=== PATIENT | female | born 1970 | race Caucasian/White ===

== ENCOUNTER 2017-10-16 15:25 | Emergency (ER) | payer SELFPAY ==
[2017-10-16 15:46] LABS: #Basophils 0.1 thou/uL (0.0-0.2); #Eosinphils 0.4 thou/uL (0.0-0.7); #Monocytes 1.2 thou/uL (0.11-0.59); %Basophils 0.6 % (0.0-1.0); %Eosinophils 4.1 % (0.0-10.0); %Lymphocytes 37.8 % (21.0-51.0); %Monocytes 10.8 % (0.0-10.0); %Neutrophils 46.6 % (42.0-75.0); Hemoglobin 13.2 g/dL (12.0-16.0); Mean Corpuscular HGB CONC 33.6 g/dL (32.0-36.0); Mean Corpuscular Hemoglobin 28.4 pg (27.0-31.0); Mean Corpuscular Volume 84.5 fL (78.0-98.0); Mean Platelet Volume 6.6 fL (7.4-10.4); Platelet Count 427 thou/uL (130-400); RBC Distribution Width 13.7 % (11.5-14.5); Red Blood Cell (RBC) Count 4.65 mill/uL (4.20-5.40); White Blood Cell (WBC) Count 10.7 thou/uL (4.8-10.8)
[2017-10-16 15:55] LABS: INR-International Normal Ratio 0.9; PTT 26.8 SEC (22.9-36.1); Prothrombin Time 12.4 SEC (12.0-14.7)
[2017-10-16 16:06] LABS: ALT (SGPT) 16 U/L (8-55); AST (SGOT) 13 U/L (5-34); Albumin 3.5 g/dL (3.5-5.0); Alkaline Phosphatase 147 U/L (40-150); Anion Gap 25 mmol/L (10-20); BUN (Urea Nitrogen) 17 mg/dL (7.0-18.7); Bilirubin, Total 0.4 mg/dL (0.2-1.2); Calc. Creatinine Clearance 0 mL/min (70-130); Calcium 9.7 mg/dL (7.8-10.44); Carbon Dioxide 26 mmol/L (22-29); Chloride 86 mmol/L (98-107); Estimated GFR-MDRD 40; Globulin 3.9 g/dL (2.4-3.5); Glucose 355 mg/dL (70-105); Magnesium 1.5 mg/dL (1.6-2.6); Potassium 4.2 mmol/L (3.5-5.1); Protein, Total 7.4 g/dL (6.0-8.3); Sodium 133 mmol/L (136-145)
[2017-10-16 16:08] LABS: CKMB 1.6 ng/mL (0-6.6); Troponin I 0.025 ng/mL (< 0.028)
--- NOTE | 2017-10-16 16:19 | RAD ---
CHEST ONE VIEW: History: Dyspnea. Comparison: 03-31-16 FINDINGS: Cardiac silhouette is partially obscured by right pleural fluid and basilar infiltrate. Mediastinum i s midline allowing for slight rightward rotation of the patient. Post-operative changes of mediastinu m. Old right clavicular fracture. No evidence of pneumothorax. IMPRESSION: Right pleural fluid and basilar infiltrate. Cause is not evident. POS: [facility]
[2017-10-16] MEDS ORDERED: Magnesium Sulfate 2 GM/NS 0.9% 50 ML BAG ONE (17:40)
[2017-10-16] MEDS ORDERED: Furosemide 20 MG/2 ML VIAL ONE (18:24)
[2017-10-16] MEDS ORDERED: Aspirin 325 MG TAB ONE (18:24)
== END 2017-10-16 19:21 | disposition short-term general hospital (02) ==
LOC: MADERS 15:25
DX: E87.70 Fluid overload, unspecified (principal); E83.42 Hypomagnesemia; I10 Essential (primary) hypertension; E11.9 Type 2 diabetes mellitus without complications; E78.5 Hyperlipidemia, unspecified; F17.210 Nicotine dependence, cigarettes, uncomplicated; F41.9 Anxiety disorder, unspecified; F32.9 Major depressive disorder, single episode, unspecified
CPT/HCPCS: 36416; 71045; 80053; 82553; 83735; 83880; 84484; 85025; 85610; 85730; 93005; 94760; 96365; 96375; J1940; J3475

== ENCOUNTER 2017-11-17 23:42 | Emergency (ER) | payer SELFPAY ==
[2017-11-18] MEDS ORDERED: Bupivacaine PF 0.5% 30 ML VIAL ONE (00:23)
[2017-11-18] MEDS ORDERED: Bupivacaine HCl 0.5%/Epinephrine 1:200,000/PF 30 ml Vial ONE (00:24)
[2017-11-18] MEDS ORDERED: Clindamycin 150 MG CAP ONE (00:52)
== END 2017-11-18 00:58 | disposition home or self-care (01) ==
LOC: MADERS 23:42
DX: K02.9 Dental caries, unspecified (principal); E11.9 Type 2 diabetes mellitus without complications; E78.5 Hyperlipidemia, unspecified; F41.9 Anxiety disorder, unspecified; F32.9 Major depressive disorder, single episode, unspecified; F17.210 Nicotine dependence, cigarettes, uncomplicated
CPT/HCPCS: 64400; J0670; S0020

== ENCOUNTER 2018-09-17 18:55 | Emergency (ER) | payer SELFPAY ==
[2018-09-17] MEDS ORDERED: Aspirin Chewable 81 MG TAB ONE (19:15)
[2018-09-17] MEDS ORDERED: Nitroglycerin 2% Ointment 1 INCH/1 GM Packet ONE (19:15)
[2018-09-17] MEDS ORDERED: Nitroglycerin 0.4 MG TAB 1 EACH ONE (19:15)
[2018-09-17 19:32] LABS: #Basophils 0.1 thou/uL (0.0-0.2); #Eosinphils 0.5 thou/uL (0.0-0.7); #Lymphocytes 2.8 thou/uL (1.20-3.40); #Monocytes 0.8 thou/uL (0.11-0.59); #Neutrophils 5.3 thou/uL (1.40-6.50); %Eosinophils 5.3 % (0.0-10.0); %Lymphocytes 29.3 % (21.0-51.0); %Monocytes 8.3 % (0.0-10.0); %Neutrophils 56.2 % (42.0-75.0); Mean Corpuscular HGB CONC 33.8 g/dL (32.0-36.0); Mean Corpuscular Hemoglobin 28.9 pg (27.0-31.0); Mean Corpuscular Volume 85.4 fL (78.0-98.0); Mean Platelet Volume 7.5 fL (7.4-10.4); Platelet Count 255 thou/uL (130-400); RBC Distribution Width 11.5 % (11.5-14.5); White Blood Cell (WBC) Count 9.5 thou/uL (4.8-10.8)
--- NOTE | 2018-09-17 19:38 | RAD ---
EXAM: Single view of the chest HISTORY: Dyspnea COMPARISON: 02/05/2018 FINDINGS: Single view of the chest shows a normal sized cardiomediastinal silhouette. The patient is status post CABG. There is no evidence of consolidation, mass, or pleural effusion. The bones are unremarkable. IMPRESSION: No evidence of acute cardiopulmonary disease
[2018-09-17 19:53] LABS: ALT (SGPT) 34 U/L (8-55); AST (SGOT) 25 U/L (5-34); Albumin 3.8 g/dL (3.5-5.0); Alkaline Phosphatase 81 U/L (40-150); Anion Gap 20 mmol/L (10-20); BUN (Urea Nitrogen) 26 mg/dL (7.0-18.7); Bilirubin, Total 0.2 mg/dL (0.2-1.2); Calc. Creatinine Clearance 0 mL/min (70-130); Calcium 9.5 mg/dL (7.8-10.44); Carbon Dioxide 25 mmol/L (22-29); Chloride 100 mmol/L (98-107); Estimated GFR-MDRD 41; Globulin 3.6 g/dL (2.4-3.5); Glucose 233 mg/dL (70-105); Potassium 5.1 mmol/L (3.5-5.1); Protein, Total 7.4 g/dL (6.0-8.3); Sodium 140 mmol/L (136-145)
[2018-09-17] MEDS ORDERED: HYDROmorphone 0.5 MG/0.5 ML SYRINGE ONE (20:37)
== END 2018-09-17 20:50 | disposition short-term general hospital (02) ==
LOC: MADERS 18:55
DX: R07.9 Chest pain, unspecified (principal); I25.10 Atherosclerotic heart disease of native coronary artery without angina pectoris; E78.2 Mixed hyperlipidemia; I10 Essential (primary) hypertension; F41.9 Anxiety disorder, unspecified; F32.9 Major depressive disorder, single episode, unspecified; Z79.899 Other long term (current) drug therapy
CPT/HCPCS: 71045; 80053; 83880; 84484; 85025; 93005; 96374; J1170

== ENCOUNTER 2018-12-04 09:55 | Emergency (ER) | payer SELFPAY ==
[2018-12-04] MEDS ORDERED: methylPREDNISolone Sod Succ/PF 125 MG/2 ML VIAL ONE (11:37)
[2018-12-04 11:49] LABS: Bilirubin Negative (Negative); Blood, Urine Small (Negative); Clarity Cloudy (Clear); Glucose, Urine (Dipstick) Negative (Negative); Leukocyte Negative (Negative); Nitrite Negative (Negative); Protein, Urine (Dipstick) > or equal to 300 mg/dL (Neg-Trace); Urobilinogen 0.2 mg/dL (Less than 2)
[2018-12-04 11:57] LABS: Bacteria/HPF 4+ HPF (None Seen); Squamous Epithelial None Seen HPF (0-3)
[2018-12-04] MEDS ORDERED: Nitrofurantoin Monohyd/M-Cryst 100 MG CAP ONE (12:08)
== END 2018-12-04 12:15 | disposition home or self-care (01) ==
LOC: MADERS 09:55
DX: N39.0 Urinary tract infection, site not specified (principal); M54.42 Lumbago with sciatica, left side; F41.9 Anxiety disorder, unspecified; F32.9 Major depressive disorder, single episode, unspecified; I25.10 Atherosclerotic heart disease of native coronary artery without angina pectoris; I10 Essential (primary) hypertension; E11.40 Type 2 diabetes mellitus with diabetic neuropathy, unspecified; E78.5 Hyperlipidemia, unspecified; E87.1 Hypo-osmolality and hyponatremia; Z79.82 Long term (current) use of aspirin; Z79.899 Other long term (current) drug therapy; Z79.84 Long term (current) use of oral hypoglycemic drugs
CPT/HCPCS: 81003; 81015; 87077; 87086; 87186; 96372; 99283; J2930

== ENCOUNTER 2019-10-04 09:44 | Outpatient (CLI) | payer OTHER ==
--- NOTE | 2019-10-04 10:18 | RAD ---
LEFT SHOULDER 3 VIEWS: HISTORY: Fall with injury. FINDINGS: Humeral head is normally positioned. AC joint normally aligned. No fracture. No dislocation. IMPRESSION: Unremarkable left shoulder. POS: [facility]
--- NOTE | 2019-10-04 10:19 | RAD ---
CERVICAL SPINE 3 VIEWS: HISTORY: Fall with injury. FINDINGS: Cervical vertebrae maintain normal height and alignment. The disk spaces are normally maintained. P osterior elements are normally aligned. Minimal degenerative change. IMPRESSION: Unremarkable cervical spine. POS: [facility]
--- NOTE | 2019-10-04 10:56 | RAD ---
LEFT KNEE 3 VIEWS: HISTORY: Fall. FINDINGS: The joint spaces are normally maintained. There is no evidence of fracture. No evidence of joint ef fusion. No significant degenerative change. IMPRESSION: Unremarkable left knee. POS: [facility]
== END 2019-10-04 09:45 | disposition home or self-care (01) ==
LOC: MADRAD 09:44
PROVIDERS: ATTEND Nurse Practitioner Family
DX: M25.562 Pain in left knee (principal); M25.512 Pain in left shoulder; M54.2 Cervicalgia; Z91.81 History of falling
CPT/HCPCS: 72040

== ENCOUNTER 2019-11-17 14:58 | Outpatient (CLI) | payer OTHER ==
--- NOTE | 2019-11-17 15:50 | RAD ---
LEFT FOOT 3 VIEWS: HISTORY: Injury, left foot pain. FINDINGS/IMPRESSION: No acute fracture or dislocation is identified. POS: [facility]
== END 2019-11-17 14:59 | disposition home or self-care (01) ==
LOC: MADRAD 14:58
PROVIDERS: ATTEND Nurse Practitioner Family
DX: S99.922A Unspecified injury of left foot, initial encounter (principal)

== ENCOUNTER 2019-12-03 19:21 | Emergency (ER) | payer OTHER ==
[2019-12-03] MEDS ORDERED: Cefepime 2 GM VIAL ONE (20:20)
[2019-12-03] MEDS ORDERED: Sodium Chloride 0.9% 1,000 ML ONE (20:20)
[2019-12-03] MEDS ORDERED: Sodium Chloride 0.9% 100 ML ONE (20:21)
--- NOTE | 2019-12-03 20:29 | RAD ---
EXAM: 3 views of the left foot HISTORY: Foot pain after being attacked by a cat COMPARISON: 11/17/2019 FINDINGS: 3 views of the left foot shows no evidence of acute fracture or dislocation. Mild soft tiss ue swelling is seen. No osseous erosions are seen. Vascular calcifications are present. No degenerative changes are present. IMPRESSION: No evidence of acute osseous abnormality.
--- NOTE | 2019-12-03 20:30 | RAD ---
EXAM: 3 views of the left ankle HISTORY: Ankle pain and swelling COMPARISON: None FINDINGS: 3 views of the left ankle shows no evidence of acute fracture or dislocation. Mild diffuse soft tissue swelling is seen. No degenerative changes are present. A chronic ossific fragment is seen adjacent to the medial malleolus. IMPRESSION: No evidence of acute osseous abnormality.
[2019-12-03 20:52] LABS: #Basophils 0.2 thou/uL (0.0-0.2); #Eosinphils 0.4 thou/uL (0.0-0.7); #Lymphocytes 3.1 thou/uL (1.20-3.40); #Monocytes 0.8 thou/uL (0.11-0.59); #Neutrophils 9.4 thou/uL (1.40-6.50); %Basophils 1.1 % (0.0-1.0); %Eosinophils 3.2 % (0.0-10.0); %Lymphocytes 22.5 % (21.0-51.0); %Monocytes 5.6 % (0.0-10.0); %Neutrophils 67.6 % (42.0-75.0); Hemoglobin 14.3 g/dL (12.0-16.0); Mean Corpuscular HGB CONC 33.1 g/dL (32.0-36.0); Mean Corpuscular Hemoglobin 29.9 pg (27.0-31.0); Mean Corpuscular Volume 90.2 fL (78.0-98.0); Mean Platelet Volume 7.3 fL (7.4-10.4); Platelet Count 451 thou/uL (130-400); RBC Distribution Width 11.5 % (11.5-14.5); Red Blood Cell (RBC) Count 4.79 mill/uL (4.20-5.40); White Blood Cell (WBC) Count 13.9 thou/uL (4.8-10.8)
[2019-12-03] MEDS ORDERED: Vancomycin 1.5 GRAM/300 ML BAG ONE (20:58)
[2019-12-03 21:01] LABS: Bilirubin Negative (Negative); Blood, Urine Moderate (Negative); Glucose, Urine (Dipstick) 500 mg/dL (Negative); Ketone, Urine Negative (Negative); Leukocyte Trace (Negative); Nitrite Positive (Negative); Protein, Urine (Dipstick) > or equal to 300 mg/dL (Neg-Trace); Urobilinogen 0.2 mg/dL (Less than 2); pH, Urine 6.5 (5.0-9.0)
[2019-12-03 21:03] LABS: INR-International Normal Ratio 0.8; PTT 25.2 sec (22.9-36.1); Prothrombin Time 11.1 sec (12.0-14.7)
[2019-12-03 21:06] LABS: Clarity Hazy (Clear)
[2019-12-03 21:07] LABS: Bacteria/HPF 2+ HPF (None Seen)
[2019-12-03 21:08] LABS: ALT (SGPT) 11 U/L (8-55); AST (SGOT) 11 U/L (5-34); Alkaline Phosphatase 91 U/L (40-110); Anion Gap 17 mmol/L (10-20); BUN (Urea Nitrogen) 19 mg/dL (9.8-20.1); Bilirubin, Total Less than 0.2 mg/dL (0.2-1.2); Calc. Creatinine Clearance 0 mL/min (70-130); Calcium 8.4 mg/dL (7.8-10.44); Carbon Dioxide 22 mmol/L (22-29); Chloride 98 mmol/L (98-107); Estimated GFR-MDRD 40; Glucose 255 mg/dL (70-105); Potassium 4.9 mmol/L (3.5-5.1); Sodium 132 mmol/L (136-145)
[2019-12-03] MEDS ORDERED: Morphine 4 MG/ML VIAL ONE (21:12)
[2019-12-03] MEDS ORDERED: Acetaminophen 500 MG TAB ONE (21:12)
== END 2019-12-03 22:56 | disposition left against medical advice (07) ==
LOC: MADERS 19:21
DX: L03.116 Cellulitis of left lower limb (principal); N30.00 Acute cystitis without hematuria; E11.40 Type 2 diabetes mellitus with diabetic neuropathy, unspecified; I25.2 Old myocardial infarction; I10 Essential (primary) hypertension; I25.10 Atherosclerotic heart disease of native coronary artery without angina pectoris; E78.5 Hyperlipidemia, unspecified; E78.00 Pure hypercholesterolemia, unspecified; E78.1 Pure hyperglyceridemia; F41.9 Anxiety disorder, unspecified; F32.9 Major depressive disorder, single episode, unspecified; Z79.84 Long term (current) use of oral hypoglycemic drugs; Z79.82 Long term (current) use of aspirin; Z79.899 Other long term (current) drug therapy
CPT/HCPCS: 80053; 81003; 81015; 83605; 85025; 85610; 85730; 87040; 87077; 87086; 96365; 96367; 96375; J0692; J2270; J3370; J3490; J7050

== ENCOUNTER 2020-06-28 21:40 | Inpatient (IN) | payer OTHER ==
[2020-06-28] MEDS ORDERED: traMADol HCl 50 MG TAB PO PRN (22:38)
[2020-06-28] MEDS ORDERED: Brimonidine Tartrate 0.2% Ophth Soln 5 ml Bottle R EYE SCH (23:00)
[2020-06-28] MEDS ORDERED: Gabapentin 100 MG CAP PO SCH (23:00)
[2020-06-28] MEDS ORDERED: Timolol 0.5% Ophth Soln 5 ml Bottle R EYE SCH (23:00)
[2020-06-28] MEDS ORDERED: Mirtazapine 15 MG TAB PO SCH (23:00)
[2020-06-28] MEDS ORDERED: Atorvastatin Calcium 40 MG TAB PO SCH (23:00)
[2020-06-29] MEDS: Acetaminophen 325 MG TAB PO SCH ×3 (05:30→17:55)
[2020-06-29] MEDS ORDERED: Alogliptin 25 MG TAB PO SCH (09:00)
[2020-06-29] MEDS: metFORMIN 500 MG TAB PO SCH ×2 (09:08→17:28)
[2020-06-29] MEDS: Metoprolol Tartrate 25 MG TAB PO SCH (09:08)
[2020-06-29] MEDS: Amlodipine 5 MG TAB PO SCH (09:08)
[2020-06-29] MEDS: Citalopram 20 MG TAB PO SCH (09:08)
[2020-06-29] MEDS: Potassium Chloride 20 MEQ TAB PO SCH (09:08)
[2020-06-29] MEDS: Gabapentin 100 MG CAP PO SCH ×2 (09:09→16:03)
[2020-06-29] MEDS: Furosemide 20 MG TAB PO SCH ×2 (09:09→13:19)
[2020-06-29] MEDS: Brimonidine Tartrate 0.2% Ophth Soln 5 ml Bottle R EYE SCH ×2 (09:10→21:41)
[2020-06-29] MEDS: Clopidogrel Bisulfate 75 MG TAB PO SCH (09:10)
[2020-06-29] MEDS: Timolol 0.5% Ophth Soln 5 ml Bottle R EYE SCH ×2 (09:11→21:41)
[2020-06-29 17:19] LABS: Bilirubin Negative (Negative); Blood, Urine Small (Negative); Clarity Slightly Cloudy (Clear); Glucose, Urine (Dipstick) Negative (Negative); Ketone, Urine Negative (Negative); Leukocyte Small (Negative); Nitrite Negative (Negative); Protein, Urine (Dipstick) 100 mg/dL (Neg-Trace); Specific Gravity, Urine 1.015 (1.005-1.030); Urobilinogen 0.2 mg/dL (Less than 2)
[2020-06-29 17:21] LABS: RBC/HPF 0-3 HPF (0-3)
[2020-06-29 17:22] LABS: Bacteria/HPF 4+ HPF (None Seen); Squamous Epithelial None Seen HPF (0-3); Urine Culture Reflex Yes Yes
[2020-06-29 17:25] LABS: Anion Gap 12 mmol/L (10-20); BUN (Urea Nitrogen) 21 mg/dL (9.8-20.1); Calc. Creatinine Clearance 54 mL/min (70-130); Calcium 8.2 mg/dL (7.8-10.44); Carbon Dioxide 21 mmol/L (22-29); Chloride 110 mmol/L (98-107); Glucose 70 mg/dL (70-105); Potassium 3.8 mmol/L (3.5-5.1); Sodium 139 mmol/L (136-145)
[2020-06-29 17:27] LABS: #Basophils 0.1 thou/uL (0.0-0.2); #Eosinphils 0.1 thou/uL (0.0-0.7); #Lymphocytes 1.2 thou/uL (1.20-3.40); #Monocytes 0.9 thou/uL (0.11-0.59); #Neutrophils 5.6 thou/uL (1.40-6.50); %Basophils 0.7 % (0.0-1.0); %Eosinophils 0.9 % (0.0-10.0); %Lymphocytes 15.1 % (21.0-51.0); %Neutrophils 71.3 % (42.0-75.0); Anisocytosis SLIGHT = 6-15 cells (100X) (0-5/hpf); Hemoglobin 11.1 g/dL (12.0-16.0); Hypochromia SLIGHT = 6-15 cells (100X) (0-5/hpf); MDiff Complete? YES; Mean Corpuscular HGB CONC 30.6 g/dL (32.0-36.0); Mean Corpuscular Hemoglobin 22.1 pg (27.0-31.0); Mean Corpuscular Volume 72.2 fL (78.0-98.0); Mean Platelet Volume 6.6 fL (7.4-10.4); Microcytosis SLIGHT = 6-15 cells (100X) (0-5/hpf); Ovalocytes SLIGHT = 2-5 cells (100X) (0-1/hpf); Platelet Count 336 thou/uL (130-400); Platelet Morphology Comment Appears Adequate; RBC Distribution Width 18.8 % (11.5-14.5); Red Blood Cell (RBC) Count 5.03 mill/uL (4.20-5.40); White Blood Cell (WBC) Count 7.9 thou/uL (4.8-10.8)
[2020-06-29] MEDS: Transdermal Patch Removal TOP SCH (20:14)
[2020-06-29] MEDS ORDERED: Mirtazapine 15 MG TAB PO SCH (21:00)
[2020-06-29] MEDS: Atorvastatin Calcium 40 MG TAB PO SCH (21:41)
[2020-06-30] MEDS: Acetaminophen 325 MG TAB PO SCH ×4 (00:02→17:02)
[2020-06-30 06:04] LABS: #Basophils 0.1 thou/uL (0.0-0.2); #Eosinphils 0.1 thou/uL (0.0-0.7); #Lymphocytes 1.9 thou/uL (1.20-3.40); #Monocytes 1.1 thou/uL (0.11-0.59); #Neutrophils 5.1 thou/uL (1.40-6.50); %Basophils 0.9 % (0.0-1.0); %Eosinophils 1.4 % (0.0-10.0); %Lymphocytes 23.2 % (21.0-51.0); %Monocytes 13.7 % (0.0-10.0); %Neutrophils 60.9 % (42.0-75.0); Hemoglobin 11.4 g/dL (12.0-16.0); Mean Corpuscular HGB CONC 28.8 g/dL (32.0-36.0); Mean Corpuscular Hemoglobin 20.9 pg (27.0-31.0); Mean Corpuscular Volume 72.8 fL (78.0-98.0); Mean Platelet Volume 6.5 fL (7.4-10.4); Platelet Count 377 thou/uL (130-400); RBC Distribution Width 19.1 % (11.5-14.5); Red Blood Cell (RBC) Count 5.44 mill/uL (4.20-5.40); White Blood Cell (WBC) Count 8.3 thou/uL (4.8-10.8)
[2020-06-30 06:06] LABS: Anisocytosis SLIGHT = 6-15 cells (100X) (0-5/hpf); Platelet Morphology Comment Appears Adequate
[2020-06-30 06:07] LABS: Anion Gap 13 mmol/L (10-20); BUN (Urea Nitrogen) 26 mg/dL (9.8-20.1); Calc. Creatinine Clearance 55 mL/min (70-130); Calcium 8.3 mg/dL (7.8-10.44); Carbon Dioxide 21 mmol/L (22-29); Chloride 107 mmol/L (98-107); Glucose 104 mg/dL (70-105); Potassium 4.1 mmol/L (3.5-5.1); Sodium 137 mmol/L (136-145)
[2020-06-30] MEDS: Citalopram 20 MG TAB PO SCH (08:34)
[2020-06-30] MEDS: Enoxaparin Sodium 40 MG/0.4 ML SYRINGE SC SCH (08:34)
[2020-06-30] MEDS: Lidocaine 5% Patch TD SCH (08:34)
[2020-06-30] MEDS: Amlodipine 5 MG TAB PO SCH (08:35)
[2020-06-30] MEDS: Clopidogrel Bisulfate 75 MG TAB PO SCH (08:35)
[2020-06-30] MEDS: Metoprolol Tartrate 25 MG TAB PO SCH (08:36)
[2020-06-30] MEDS: Potassium Chloride 20 MEQ TAB PO SCH (08:36)
[2020-06-30] MEDS: Furosemide 20 MG TAB PO SCH ×2 (08:36→14:27)
[2020-06-30] MEDS: metFORMIN 500 MG TAB PO SCH ×2 (08:36→17:02)
[2020-06-30] MEDS: Brimonidine Tartrate 0.2% Ophth Soln 5 ml Bottle R EYE SCH ×2 (08:39→20:58)
[2020-06-30] MEDS: Timolol 0.5% Ophth Soln 5 ml Bottle R EYE SCH ×2 (08:40→20:58)
[2020-06-30] MEDS: Naproxen 500 MG TAB PO PRN (14:29)
[2020-06-30] MEDS: Mirtazapine 15 MG TAB PO SCH (20:55)
[2020-06-30] MEDS: Gabapentin 100 MG CAP PO SCH (20:56)
[2020-06-30] MEDS: Atorvastatin Calcium 40 MG TAB PO SCH (20:57)
[2020-06-30] MEDS: Transdermal Patch Removal TOP SCH (21:17)
[2020-07-01] MEDS: Acetaminophen 325 MG TAB PO SCH ×5 (01:24→23:37)
[2020-07-01] MEDS: Naproxen 500 MG TAB PO PRN ×2 (01:26→08:22)
[2020-07-01] MEDS: Potassium Chloride 20 MEQ TAB PO SCH (08:20)
[2020-07-01] MEDS: metFORMIN 500 MG TAB PO SCH ×2 (08:21→17:07)
[2020-07-01] MEDS: Citalopram 20 MG TAB PO SCH (08:21)
[2020-07-01] MEDS: Amlodipine 5 MG TAB PO SCH (08:22)
[2020-07-01] MEDS: Furosemide 20 MG TAB PO SCH ×2 (08:22→14:50)
[2020-07-01] MEDS: Gabapentin 100 MG CAP PO SCH ×3 (08:23→21:07)
[2020-07-01] MEDS: Enoxaparin Sodium 40 MG/0.4 ML SYRINGE SC SCH (08:24)
[2020-07-01] MEDS: Clopidogrel Bisulfate 75 MG TAB PO SCH (08:24)
[2020-07-01] MEDS: Lidocaine 5% Patch TD SCH (08:25)
[2020-07-01] MEDS: Timolol 0.5% Ophth Soln 5 ml Bottle R EYE SCH ×2 (08:25→21:09)
[2020-07-01] MEDS: Metoprolol Tartrate 25 MG TAB PO SCH (08:25)
[2020-07-01] MEDS: Brimonidine Tartrate 0.2% Ophth Soln 5 ml Bottle R EYE SCH ×2 (08:25→21:10)
[2020-07-01] MEDS: Atorvastatin Calcium 40 MG TAB PO SCH (21:07)
[2020-07-01] MEDS: Nitrofurantoin Monohyd/M-Cryst 100 MG CAP PO SCH (21:07)
[2020-07-01] MEDS: Mirtazapine 15 MG TAB PO SCH (21:07)
[2020-07-01] MEDS: Transdermal Patch Removal TOP SCH (21:11)
[2020-07-02] MEDS: Acetaminophen 325 MG TAB PO SCH ×2 (05:31→12:05)
[2020-07-02] MEDS: Nitrofurantoin Monohyd/M-Cryst 100 MG CAP PO SCH ×2 (09:29→21:52)
[2020-07-02] MEDS: Citalopram 20 MG TAB PO SCH (09:29)
[2020-07-02] MEDS: Gabapentin 100 MG CAP PO SCH ×3 (09:30→21:54)
[2020-07-02] MEDS: metFORMIN 500 MG TAB PO SCH ×2 (09:30→17:28)
[2020-07-02] MEDS: Metoprolol Tartrate 25 MG TAB PO SCH (09:30)
[2020-07-02] MEDS: Potassium Chloride 20 MEQ TAB PO SCH (09:30)
[2020-07-02] MEDS: Furosemide 20 MG TAB PO SCH ×2 (09:31→13:49)
[2020-07-02] MEDS: Brimonidine Tartrate 0.2% Ophth Soln 5 ml Bottle R EYE SCH ×2 (09:31→21:55)
[2020-07-02] MEDS: Amlodipine 5 MG TAB PO SCH (09:31)
[2020-07-02] MEDS: Clopidogrel Bisulfate 75 MG TAB PO SCH (09:31)
[2020-07-02] MEDS: Enoxaparin Sodium 40 MG/0.4 ML SYRINGE SC SCH (09:32)
[2020-07-02] MEDS: Lidocaine 5% Patch TD SCH (09:33)
[2020-07-02] MEDS: Timolol 0.5% Ophth Soln 5 ml Bottle R EYE SCH ×2 (09:43→21:55)
[2020-07-02] MEDS: Naproxen 500 MG TAB PO PRN (13:47)
[2020-07-02] MEDS: Atorvastatin Calcium 40 MG TAB PO SCH (21:52)
[2020-07-02] MEDS: Mirtazapine 15 MG TAB PO SCH (21:53)
[2020-07-02] MEDS: Transdermal Patch Removal TOP SCH (21:56)
[2020-07-03] MEDS: Enoxaparin Sodium 40 MG/0.4 ML SYRINGE SC SCH (08:17)
[2020-07-03] MEDS: Clopidogrel Bisulfate 75 MG TAB PO SCH (08:18)
[2020-07-03] MEDS: Gabapentin 100 MG CAP PO SCH ×3 (08:18→20:40)
[2020-07-03] MEDS: Amlodipine 5 MG TAB PO SCH (08:18)
[2020-07-03] MEDS: Furosemide 20 MG TAB PO SCH ×2 (08:19→14:47)
[2020-07-03] MEDS: Metoprolol Tartrate 25 MG TAB PO SCH (08:19)
[2020-07-03] MEDS: Citalopram 20 MG TAB PO SCH (08:19)
[2020-07-03] MEDS: metFORMIN 500 MG TAB PO SCH ×2 (08:19→17:32)
[2020-07-03] MEDS: Potassium Chloride 20 MEQ TAB PO SCH (08:19)
[2020-07-03] MEDS: Nitrofurantoin Monohyd/M-Cryst 100 MG CAP PO SCH ×2 (08:19→20:44)
[2020-07-03] MEDS: Brimonidine Tartrate 0.2% Ophth Soln 5 ml Bottle R EYE SCH ×2 (08:20→20:39)
[2020-07-03] MEDS: Timolol 0.5% Ophth Soln 5 ml Bottle R EYE SCH ×2 (08:21→20:40)
[2020-07-03] MEDS: Lidocaine 5% Patch TD SCH (08:21)
[2020-07-03] MEDS: Acetaminophen 325 MG TAB PO PRN ×3 (08:22→20:43)
[2020-07-03] MEDS: Atorvastatin Calcium 40 MG TAB PO SCH (20:40)
[2020-07-03] MEDS: Mirtazapine 15 MG TAB PO SCH (20:41)
[2020-07-03] MEDS: Transdermal Patch Removal TOP SCH (20:44)
[2020-07-04] MEDS: Naproxen 500 MG TAB PO PRN ×2 (08:25→14:12)
[2020-07-04] MEDS: Brimonidine Tartrate 0.2% Ophth Soln 5 ml Bottle R EYE SCH ×2 (08:26→22:23)
[2020-07-04] MEDS: Timolol 0.5% Ophth Soln 5 ml Bottle R EYE SCH ×2 (08:26→22:21)
[2020-07-04] MEDS: Enoxaparin Sodium 40 MG/0.4 ML SYRINGE SC SCH (08:26)
[2020-07-04] MEDS: Potassium Chloride 20 MEQ TAB PO SCH (08:27)
[2020-07-04] MEDS: Nitrofurantoin Monohyd/M-Cryst 100 MG CAP PO SCH ×2 (08:27→22:19)
[2020-07-04] MEDS: metFORMIN 500 MG TAB PO SCH ×2 (08:27→17:52)
[2020-07-04] MEDS: Metoprolol Tartrate 25 MG TAB PO SCH (08:27)
[2020-07-04] MEDS: Furosemide 20 MG TAB PO SCH ×2 (08:27→14:13)
[2020-07-04] MEDS: Clopidogrel Bisulfate 75 MG TAB PO SCH (08:27)
[2020-07-04] MEDS: Gabapentin 100 MG CAP PO SCH ×3 (08:28→22:19)
[2020-07-04] MEDS: Amlodipine 5 MG TAB PO SCH (08:28)
[2020-07-04] MEDS: Citalopram 20 MG TAB PO SCH (08:28)
[2020-07-04] MEDS: Lidocaine 5% Patch TD SCH (08:32)
[2020-07-04] MEDS: Atorvastatin Calcium 40 MG TAB PO SCH (22:17)
[2020-07-04] MEDS: Mirtazapine 15 MG TAB PO SCH (22:18)
[2020-07-04] MEDS: Transdermal Patch Removal TOP SCH (22:26)
[2020-07-05] MEDS: Gabapentin 100 MG CAP PO SCH ×3 (08:53→21:50)
[2020-07-05] MEDS: Metoprolol Tartrate 25 MG TAB PO SCH (08:53)
[2020-07-05] MEDS: Nitrofurantoin Monohyd/M-Cryst 100 MG CAP PO SCH ×2 (08:53→21:49)
[2020-07-05] MEDS: metFORMIN 500 MG TAB PO SCH ×2 (08:55→16:58)
[2020-07-05] MEDS: Furosemide 20 MG TAB PO SCH ×2 (08:55→13:28)
[2020-07-05] MEDS: Clopidogrel Bisulfate 75 MG TAB PO SCH (08:55)
[2020-07-05] MEDS: Amlodipine 5 MG TAB PO SCH (08:55)
[2020-07-05] MEDS: Citalopram 20 MG TAB PO SCH (08:55)
[2020-07-05] MEDS: Potassium Chloride 20 MEQ TAB PO SCH (08:55)
[2020-07-05] MEDS: Naproxen 500 MG TAB PO PRN ×2 (08:56→17:00)
[2020-07-05] MEDS: Brimonidine Tartrate 0.2% Ophth Soln 5 ml Bottle R EYE SCH ×2 (08:59→21:55)
[2020-07-05] MEDS: Lidocaine 5% Patch TD SCH (09:00)
[2020-07-05] MEDS: Enoxaparin Sodium 40 MG/0.4 ML SYRINGE SC SCH (09:00)
[2020-07-05] MEDS: Timolol 0.5% Ophth Soln 5 ml Bottle R EYE SCH ×2 (09:04→21:54)
[2020-07-05] MEDS: Acetaminophen 325 MG TAB PO PRN ×2 (13:27→21:50)
[2020-07-05] MEDS: Mirtazapine 15 MG TAB PO SCH (21:49)
[2020-07-05] MEDS: Atorvastatin Calcium 40 MG TAB PO SCH (21:49)
[2020-07-05] MEDS: Transdermal Patch Removal TOP SCH (21:55)
[2020-07-06] MEDS: metFORMIN 500 MG TAB PO SCH ×2 (09:01→17:37)
[2020-07-06] MEDS: Clopidogrel Bisulfate 75 MG TAB PO SCH (09:02)
[2020-07-06] MEDS: Gabapentin 100 MG CAP PO SCH ×3 (09:02→20:13)
[2020-07-06] MEDS: Citalopram 20 MG TAB PO SCH (09:02)
[2020-07-06] MEDS: Nitrofurantoin Monohyd/M-Cryst 100 MG CAP PO SCH ×2 (09:02→20:10)
[2020-07-06] MEDS: Furosemide 20 MG TAB PO SCH ×2 (09:04→15:02)
[2020-07-06] MEDS: Potassium Chloride 20 MEQ TAB PO SCH (09:04)
[2020-07-06] MEDS: Enoxaparin Sodium 40 MG/0.4 ML SYRINGE SC SCH (09:04)
[2020-07-06] MEDS: Metoprolol Tartrate 25 MG TAB PO SCH (09:04)
[2020-07-06] MEDS: Lidocaine 5% Patch TD SCH (09:04)
[2020-07-06] MEDS: Timolol 0.5% Ophth Soln 5 ml Bottle R EYE SCH ×2 (09:05→20:10)
[2020-07-06] MEDS: Amlodipine 5 MG TAB PO SCH (09:06)
[2020-07-06] MEDS: Brimonidine Tartrate 0.2% Ophth Soln 5 ml Bottle R EYE SCH ×2 (09:06→20:10)
[2020-07-06] MEDS: Naproxen 500 MG TAB PO PRN (13:22)
[2020-07-06] MEDS: Atorvastatin Calcium 40 MG TAB PO SCH (20:12)
[2020-07-06] MEDS: Transdermal Patch Removal TOP SCH (20:14)
[2020-07-06] MEDS: Mirtazapine 15 MG TAB PO SCH (20:14)
[2020-07-06] MEDS: Acetaminophen 325 MG TAB PO PRN (20:17)
[2020-07-07] MEDS: Gabapentin 100 MG CAP PO SCH ×3 (08:39→21:10)
[2020-07-07] MEDS: Enoxaparin Sodium 40 MG/0.4 ML SYRINGE SC SCH (08:39)
[2020-07-07] MEDS: metFORMIN 500 MG TAB PO SCH ×2 (08:41→17:50)
[2020-07-07] MEDS: Metoprolol Tartrate 25 MG TAB PO SCH (08:41)
[2020-07-07] MEDS: Clopidogrel Bisulfate 75 MG TAB PO SCH (08:41)
[2020-07-07] MEDS: Potassium Chloride 20 MEQ TAB PO SCH (08:41)
[2020-07-07] MEDS: Citalopram 20 MG TAB PO SCH (08:42)
[2020-07-07] MEDS: Furosemide 20 MG TAB PO SCH ×2 (08:42→13:53)
[2020-07-07] MEDS: Amlodipine 5 MG TAB PO SCH (08:43)
[2020-07-07] MEDS: Timolol 0.5% Ophth Soln 5 ml Bottle R EYE SCH ×2 (08:44→21:09)
[2020-07-07] MEDS: Brimonidine Tartrate 0.2% Ophth Soln 5 ml Bottle R EYE SCH ×2 (08:44→21:09)
[2020-07-07] MEDS: Lidocaine 5% Patch TD SCH (08:45)
[2020-07-07] MEDS: Acetaminophen 325 MG TAB PO PRN (18:29)
[2020-07-07] MEDS: Naproxen 500 MG TAB PO PRN (18:29)
[2020-07-07] MEDS: Atorvastatin Calcium 40 MG TAB PO SCH (21:08)
[2020-07-07] MEDS: Mirtazapine 15 MG TAB PO SCH (21:09)
[2020-07-07] MEDS: Transdermal Patch Removal TOP SCH (21:13)
[2020-07-08] MEDS: Naproxen 500 MG TAB PO PRN ×2 (07:17→13:13)
[2020-07-08] MEDS: Gabapentin 100 MG CAP PO SCH ×4 (07:18→21:43)
[2020-07-08] MEDS: Enoxaparin Sodium 40 MG/0.4 ML SYRINGE SC SCH (07:18)
[2020-07-08] MEDS: Amlodipine 5 MG TAB PO SCH (07:19)
[2020-07-08] MEDS: Metoprolol Tartrate 25 MG TAB PO SCH (07:20)
[2020-07-08] MEDS: metFORMIN 500 MG TAB PO SCH ×2 (07:20→16:03)
[2020-07-08] MEDS: Timolol 0.5% Ophth Soln 5 ml Bottle R EYE SCH ×2 (07:20→21:46)
[2020-07-08] MEDS: Citalopram 20 MG TAB PO SCH (07:20)
[2020-07-08] MEDS: Potassium Chloride 20 MEQ TAB PO SCH (07:20)
[2020-07-08] MEDS: Lidocaine 5% Patch TD SCH (07:20)
[2020-07-08] MEDS: Clopidogrel Bisulfate 75 MG TAB PO SCH (07:20)
[2020-07-08] MEDS: Brimonidine Tartrate 0.2% Ophth Soln 5 ml Bottle R EYE SCH ×2 (07:21→21:46)
[2020-07-08] MEDS: Furosemide 20 MG TAB PO SCH ×2 (10:42→13:13)
[2020-07-08] MEDS: Atorvastatin Calcium 40 MG TAB PO SCH (21:42)
[2020-07-08] MEDS: Mirtazapine 15 MG TAB PO SCH (21:42)
[2020-07-08] MEDS: Transdermal Patch Removal TOP SCH (21:48)
[2020-07-09] MEDS: Citalopram 20 MG TAB PO SCH (08:26)
[2020-07-09] MEDS: Clopidogrel Bisulfate 75 MG TAB PO SCH (08:27)
[2020-07-09] MEDS: Furosemide 20 MG TAB PO SCH ×2 (08:27→14:13)
[2020-07-09] MEDS: Gabapentin 100 MG CAP PO SCH ×3 (08:27→20:52)
[2020-07-09] MEDS: Metoprolol Tartrate 25 MG TAB PO SCH (08:27)
[2020-07-09] MEDS: metFORMIN 500 MG TAB PO SCH ×2 (08:28→17:06)
[2020-07-09] MEDS: Enoxaparin Sodium 40 MG/0.4 ML SYRINGE SC SCH (08:28)
[2020-07-09] MEDS: Lidocaine 5% Patch TD SCH (08:28)
[2020-07-09] MEDS: Potassium Chloride 20 MEQ TAB PO SCH (08:28)
[2020-07-09] MEDS: Amlodipine 5 MG TAB PO SCH (08:28)
[2020-07-09] MEDS: Brimonidine Tartrate 0.2% Ophth Soln 5 ml Bottle R EYE SCH ×2 (08:33→20:54)
[2020-07-09] MEDS: Timolol 0.5% Ophth Soln 5 ml Bottle R EYE SCH ×2 (08:33→20:55)
[2020-07-09] MEDS: Acetaminophen 325 MG TAB PO PRN (12:57)
[2020-07-09] MEDS: Naproxen 500 MG TAB PO PRN (14:12)
[2020-07-09] MEDS: Transdermal Patch Removal TOP SCH (20:45)
[2020-07-09] MEDS: Atorvastatin Calcium 40 MG TAB PO SCH (20:50)
[2020-07-09] MEDS: Mirtazapine 15 MG TAB PO SCH (20:51)
[2020-07-10] MEDS: Naproxen 500 MG TAB PO PRN ×2 (04:04→22:01)
[2020-07-10] MEDS: Lidocaine 5% Patch TD SCH (08:30)
[2020-07-10] MEDS: Gabapentin 100 MG CAP PO SCH ×3 (08:31→20:55)
[2020-07-10] MEDS: Potassium Chloride 20 MEQ TAB PO SCH (08:32)
[2020-07-10] MEDS: Furosemide 20 MG TAB PO SCH ×2 (08:32→14:18)
[2020-07-10] MEDS: metFORMIN 500 MG TAB PO SCH ×2 (08:32→17:22)
[2020-07-10] MEDS: Metoprolol Tartrate 25 MG TAB PO SCH (08:32)
[2020-07-10] MEDS: Clopidogrel Bisulfate 75 MG TAB PO SCH (08:32)
[2020-07-10] MEDS: Amlodipine 5 MG TAB PO SCH (08:32)
[2020-07-10] MEDS: Citalopram 20 MG TAB PO SCH (08:33)
[2020-07-10] MEDS: Brimonidine Tartrate 0.2% Ophth Soln 5 ml Bottle R EYE SCH ×2 (08:35→20:54)
[2020-07-10] MEDS: Timolol 0.5% Ophth Soln 5 ml Bottle R EYE SCH ×2 (08:36→20:52)
[2020-07-10] MEDS: Enoxaparin Sodium 40 MG/0.4 ML SYRINGE SC SCH (08:36)
[2020-07-10] MEDS: ACETAZOLAMIDE 250 MG TAB PO SCH (20:50)
[2020-07-10] MEDS: Latanoprost 0.005% Ophth Soln 2.5 ml Bottle R EYE SCH (20:54)
[2020-07-10] MEDS: Atorvastatin Calcium 40 MG TAB PO SCH (20:55)
[2020-07-10] MEDS: Mirtazapine 15 MG TAB PO SCH (20:55)
[2020-07-10] MEDS: Transdermal Patch Removal TOP SCH (20:56)
[2020-07-11] MEDS: Enoxaparin Sodium 40 MG/0.4 ML SYRINGE SC SCH (09:17)
[2020-07-11] MEDS: Lidocaine 5% Patch TD SCH (09:17)
[2020-07-11] MEDS: Timolol 0.5% Ophth Soln 5 ml Bottle R EYE SCH ×2 (09:17→20:29)
[2020-07-11] MEDS: Metoprolol Tartrate 25 MG TAB PO SCH (09:18)
[2020-07-11] MEDS: Potassium Chloride 20 MEQ TAB PO SCH (09:18)
[2020-07-11] MEDS: Furosemide 20 MG TAB PO SCH ×2 (09:18→13:55)
[2020-07-11] MEDS: Clopidogrel Bisulfate 75 MG TAB PO SCH (09:18)
[2020-07-11] MEDS: Gabapentin 100 MG CAP PO SCH ×3 (09:18→20:31)
[2020-07-11] MEDS: Amlodipine 5 MG TAB PO SCH (09:18)
[2020-07-11] MEDS: Citalopram 20 MG TAB PO SCH (09:18)
[2020-07-11] MEDS: ACETAZOLAMIDE 250 MG TAB PO SCH ×3 (09:19→20:38)
[2020-07-11] MEDS: Brimonidine Tartrate 0.2% Ophth Soln 5 ml Bottle R EYE SCH ×2 (09:23→20:30)
[2020-07-11] MEDS: metFORMIN 500 MG TAB PO SCH ×2 (09:23→17:09)
[2020-07-11] MEDS: Naproxen 500 MG TAB PO PRN (13:55)
[2020-07-11] MEDS: Atorvastatin Calcium 40 MG TAB PO SCH (20:29)
[2020-07-11] MEDS: Mirtazapine 15 MG TAB PO SCH (20:31)
[2020-07-11] MEDS: Latanoprost 0.005% Ophth Soln 2.5 ml Bottle R EYE SCH (20:32)
[2020-07-11] MEDS: Transdermal Patch Removal TOP SCH (20:33)
[2020-07-11] MEDS: Acetaminophen 325 MG TAB PO PRN (20:41)
[2020-07-12] MEDS: Lidocaine 5% Patch TD SCH (08:23)
[2020-07-12] MEDS: Metoprolol Tartrate 25 MG TAB PO SCH (08:25)
[2020-07-12] MEDS: metFORMIN 500 MG TAB PO SCH ×2 (08:25→17:00)
[2020-07-12] MEDS: Amlodipine 5 MG TAB PO SCH (08:25)
[2020-07-12] MEDS: Gabapentin 100 MG CAP PO SCH ×3 (08:26→20:45)
[2020-07-12] MEDS: Potassium Chloride 20 MEQ TAB PO SCH (08:26)
[2020-07-12] MEDS: Citalopram 20 MG TAB PO SCH (08:27)
[2020-07-12] MEDS: Clopidogrel Bisulfate 75 MG TAB PO SCH (08:27)
[2020-07-12] MEDS: Furosemide 20 MG TAB PO SCH ×2 (08:27→14:56)
[2020-07-12] MEDS: Acetaminophen 325 MG TAB PO PRN (08:27)
[2020-07-12] MEDS: Brimonidine Tartrate 0.2% Ophth Soln 5 ml Bottle R EYE SCH ×2 (08:28→20:44)
[2020-07-12] MEDS: Enoxaparin Sodium 40 MG/0.4 ML SYRINGE SC SCH (08:28)
[2020-07-12] MEDS: Timolol 0.5% Ophth Soln 5 ml Bottle R EYE SCH ×2 (08:29→20:44)
[2020-07-12] MEDS: ACETAZOLAMIDE 250 MG TAB PO SCH (08:37)
[2020-07-12] MEDS: AcetaZOLAMIDE 250 MG TAB PO SCH ×2 (14:56→20:46)
[2020-07-12 15:38] VITALS: BMI 23.6
[2020-07-12 18:05] LABS: Anion Gap 18 mmol/L (10-20); BUN (Urea Nitrogen) 56 mg/dL (9.8-20.1); Calc. Creatinine Clearance 47 mL/min (70-130); Carbon Dioxide 22 mmol/L (22-29); Chloride 105 mmol/L (98-107); Potassium 4.8 mmol/L (3.5-5.1); Sodium 140 mmol/L (136-145)
[2020-07-12 18:06] LABS: ALT (SGPT) 13 U/L (8-55); AST (SGOT) 16 U/L (5-34); Albumin 3.2 g/dL (3.5-5.0); Alkaline Phosphatase 140 U/L (40-110); Bilirubin, Total 0.4 mg/dL (0.2-1.2); Calcium 8.7 mg/dL (7.8-10.44); Globulin 3.9 g/dL (2.4-3.5); Glucose 117 mg/dL (70-105); Protein, Total 7.1 g/dL (6.0-8.3)
[2020-07-12] MEDS: Latanoprost 0.005% Ophth Soln 2.5 ml Bottle R EYE SCH (20:45)
[2020-07-12] MEDS: Cefdinir 300 MG CAP PO SCH (20:45)
[2020-07-12] MEDS: Atorvastatin Calcium 40 MG TAB PO SCH (20:46)
[2020-07-12] MEDS: Mirtazapine 15 MG TAB PO SCH (20:48)
[2020-07-12] MEDS: Transdermal Patch Removal TOP SCH (21:00)
[2020-07-13] MEDS: Amlodipine 5 MG TAB PO SCH (09:17)
[2020-07-13] MEDS: Cefdinir 300 MG CAP PO SCH (09:18)
[2020-07-13] MEDS: AcetaZOLAMIDE 250 MG TAB PO SCH ×3 (09:18→20:28)
[2020-07-13] MEDS: metFORMIN 500 MG TAB PO SCH ×2 (09:18→18:08)
[2020-07-13] MEDS: Furosemide 20 MG TAB PO SCH (09:18)
[2020-07-13] MEDS: Potassium Chloride 20 MEQ TAB PO SCH (09:18)
[2020-07-13] MEDS: Naproxen 500 MG TAB PO PRN (09:19)
[2020-07-13] MEDS: Clopidogrel Bisulfate 75 MG TAB PO SCH (09:19)
[2020-07-13] MEDS: Gabapentin 100 MG CAP PO SCH ×3 (09:21→20:27)
[2020-07-13] MEDS: Metoprolol Tartrate 25 MG TAB PO SCH (09:22)
[2020-07-13] MEDS: Citalopram 20 MG TAB PO SCH (09:22)
[2020-07-13] MEDS: Enoxaparin Sodium 40 MG/0.4 ML SYRINGE SC SCH (09:22)
[2020-07-13] MEDS: Lidocaine 5% Patch TD SCH (09:23)
[2020-07-13] MEDS: Timolol 0.5% Ophth Soln 5 ml Bottle R EYE SCH ×2 (09:23→20:26)
[2020-07-13] MEDS: Brimonidine Tartrate 0.2% Ophth Soln 5 ml Bottle R EYE SCH ×2 (09:24→20:26)
[2020-07-13] MEDS ORDERED: Furosemide 40 MG/4 ML VIAL ONE (13:44)
[2020-07-13] MEDS ORDERED: Furosemide 40 MG/4 ML VIAL SLOW IVP SCH (13:45)
[2020-07-13 14:07] LABS: CKMB 2.2 ng/mL (0-6.6)
[2020-07-13 16:20] LABS: SARS-CoV-2 PCR by NAA Not Detected (NotDetected)
[2020-07-13 19:30] VITALS: BP 118/77; TEMP 97.3
[2020-07-13] MEDS ORDERED: cefTRIAXone\\ROCEPHIN 2 GM in Sodium Chloride 0.9% 100 ML IVPB SCH (20:00)
[2020-07-13] MEDS: Latanoprost 0.005% Ophth Soln 2.5 ml Bottle R EYE SCH (20:26)
[2020-07-13] MEDS: Mirtazapine 15 MG TAB PO SCH (20:28)
[2020-07-13] MEDS: Atorvastatin Calcium 40 MG TAB PO SCH (20:29)
[2020-07-13] MEDS: Transdermal Patch Removal TOP SCH (20:42)
[2020-07-13] MEDS ORDERED: Doxycycline 100 MG CAP PO SCH (21:00)
== END 2020-07-13 23:50 | disposition short-term general hospital (02) | DRG 291 ==
LOC: MADMS 21:40
PROVIDERS: ADMIT Family Medicine; ATTEND Family Medicine
DX: I11.0 Hypertensive heart disease with heart failure (principal); J18.9 Pneumonia, unspecified organism; J96.21 Acute and chronic respiratory failure with hypoxia; N39.0 Urinary tract infection, site not specified; E11.40 Type 2 diabetes mellitus with diabetic neuropathy, unspecified; I25.10 Atherosclerotic heart disease of native coronary artery without angina pectoris; H40.9 Unspecified glaucoma; E11.51 Type 2 diabetes mellitus with diabetic peripheral angiopathy without gangrene; R53.81 Other malaise; I50.33 Acute on chronic diastolic (congestive) heart failure; R41.0 Disorientation, unspecified; R26.9 Unspecified abnormalities of gait and mobility; B95.2 Enterococcus as the cause of diseases classified elsewhere; T50.905A Adverse effect of unspecified drugs, medicaments and biological substances, initial encounter; R00.1 Bradycardia, unspecified; F41.8 Other specified anxiety disorders; Z20.822 Contact with and (suspected) exposure to COVID-19; S81.802S Unspecified open wound, left lower leg, sequela; S72.002S Fracture of unspecified part of neck of left femur, sequela; Z91.81 History of falling; Z99.81 Dependence on supplemental oxygen
CPT/HCPCS: 36416; 71045; 80048; 80053; 82550; 82553; 83880; 84484; 85025; 87070; 87077; 87086; 87186; 87205; 87635; 94640; 36415-59; J0696; J1650; J1940; J3490; J7620; U0003; U0005

== ENCOUNTER 2020-09-19 11:57 | Emergency (ER) | payer OTHER ==
[2020-09-19 13:27] LABS: ALT (SGPT) 18 U/L (8-55); AST (SGOT) 22 U/L (5-34); Albumin 3.3 g/dL (3.5-5.0); Alkaline Phosphatase 179 U/L (40-110); Anion Gap 19 mmol/L (10-20); BUN (Urea Nitrogen) 15 mg/dL (9.8-20.1); Bilirubin, Total 0.7 mg/dL (0.2-1.2); CK (CPK) 58 U/L (29-168); Calc. Creatinine Clearance 0 mL/min (70-130); Calcium 8.9 mg/dL (7.8-10.44); Carbon Dioxide 24 mmol/L (22-29); Chloride 97 mmol/L (98-107); Globulin 4.2 g/dL (2.4-3.5); Glucose 177 mg/dL (70-105); Lipase 72 U/L (8-78); Potassium 4.1 mmol/L (3.5-5.1); Protein, Total 7.5 g/dL (6.0-8.3); Sodium 136 mmol/L (136-145)
[2020-09-19 13:41] LABS: #Basophils 0.1 thou/uL (0.0-0.2); #Eosinphils 0.2 thou/uL (0.0-0.7); #Lymphocytes 1.1 thou/uL (1.20-3.40); #Monocytes 0.8 thou/uL (0.11-0.59); #Neutrophils 6.3 thou/uL (1.40-6.50); %Basophils 0.6 % (0.0-1.0); %Eosinophils 2.4 % (0.0-10.0); Anisocytosis SLIGHT = 6-15 cells (100X) (0-5/hpf); Hemoglobin 12.1 g/dL (12.0-16.0); Hypochromia SLIGHT = 6-15 cells (100X) (0-5/hpf); MDiff Complete? YES; Mean Corpuscular Hemoglobin 28.2 pg (27.0-31.0); Mean Corpuscular Volume 90.8 fL (78.0-98.0); Mean Platelet Volume 7.6 fL (7.4-10.4); Platelet Count 251 thou/uL (130-400); Platelet Morphology Comment Appears Adequate; RBC Distribution Width 18.6 % (11.5-14.5); Red Blood Cell (RBC) Count 4.31 mill/uL (4.20-5.40); White Blood Cell (WBC) Count 8.4 thou/uL (4.8-10.8)
[2020-09-19] MEDS ORDERED: Furosemide 40 MG/4 ML VIAL ONE (13:44)
[2020-09-19] MEDS ORDERED: Nitroglycerin 2% Ointment 1 INCH/1 GM Packet ONE (13:44)
== END 2020-09-19 15:29 | disposition short-term general hospital (02) ==
LOC: MADERS 11:57
DX: I11.0 Hypertensive heart disease with heart failure (principal); I50.9 Heart failure, unspecified; R06.2 Wheezing; E11.40 Type 2 diabetes mellitus with diabetic neuropathy, unspecified; I25.10 Atherosclerotic heart disease of native coronary artery without angina pectoris; I25.2 Old myocardial infarction; E78.5 Hyperlipidemia, unspecified; E78.00 Pure hypercholesterolemia, unspecified; E78.1 Pure hyperglyceridemia; Z87.891 Personal history of nicotine dependence; Z79.84 Long term (current) use of oral hypoglycemic drugs; Z79.891 Long term (current) use of opiate analgesic; Z79.899 Other long term (current) drug therapy
CPT/HCPCS: 71045; 80053; 82550; 83690; 83880; 84484; 85025; 93005; 94760; 96374; J1940; J7620

== ENCOUNTER 2020-10-04 10:56 | Outpatient (CLI) | payer OTHER ==
[2020-10-04 11:52] LABS: Albumin 3.4 g/dL (3.5-5.0); Anion Gap 17 mmol/L (10-20); BUN (Urea Nitrogen) 19 mg/dL (9.8-20.1); BUN/Creatinine Ratio 13.19; Calc. Creatinine Clearance 0 mL/min (70-130); Calcium 9.2 mg/dL (7.8-10.44); Carbon Dioxide 27 mmol/L (22-29); Chloride 96 mmol/L (98-107); Glucose 237 mg/dL (70-105); Phosphorus 4.3 mg/dL (2.3-4.7); Potassium 4.5 mmol/L (3.5-5.1); Sodium 135 mmol/L (136-145)
== END 2020-10-04 10:57 | disposition home or self-care (01) ==
LOC: MADLAB 10:56
PROVIDERS: ATTEND Internal Medicine Nephrology
DX: N17.9 Acute kidney failure, unspecified (principal)
CPT/HCPCS: 36415; 80069

== ENCOUNTER 2020-10-09 16:24 | Emergency (ER) | payer OTHER ==
[2020-10-09 18:27] LABS: ALT (SGPT) 12 U/L (8-55); AST (SGOT) 16 U/L (5-34); Albumin 2.5 g/dL (3.5-5.0); Alkaline Phosphatase 214 U/L (40-110); Anion Gap 17 mmol/L (10-20); BUN (Urea Nitrogen) 23 mg/dL (9.8-20.1); Bilirubin, Total 0.5 mg/dL (0.2-1.2); Calc. Creatinine Clearance 0 mL/min (70-130); Calcium 8.8 mg/dL (7.8-10.44); Carbon Dioxide 25 mmol/L (22-29); Chloride 91 mmol/L (98-107); Globulin 4.3 g/dL (2.4-3.5); Glucose 283 mg/dL (70-105); Potassium 4.8 mmol/L (3.5-5.1); Protein, Total 6.8 g/dL (6.0-8.3); Sodium 128 mmol/L (136-145)
[2020-10-09 18:31] LABS: Band 9 % (5-11); Hemoglobin 9.4 g/dL (12.0-16.0); Hypochromia SLIGHT = 6-15 cells (100X) (0-5/hpf); Lymphocytes 2 % (21-51); MDiff Complete? YES; Mean Corpuscular HGB CONC 30.7 g/dL (32.0-36.0); Mean Corpuscular Hemoglobin 27.6 pg (27.0-31.0); Mean Corpuscular Volume 89.6 fL (78.0-98.0); Mean Platelet Volume 8.3 fL (7.4-10.4); Monocytes 2 % (0-10); Neutrophil 84 % (42-75); Platelet Count 323 thou/uL (130-400); Platelet Morphology Comment Appears Adequate; RBC Distribution Width 16.7 % (11.5-14.5); Reactive Lymphocytes 3 % (0-10); Red Blood Cell (RBC) Count 3.42 mill/uL (4.20-5.40); White Blood Cell (WBC) Count 26.4 thou/uL (4.8-10.8)
[2020-10-09] MEDS ORDERED: Sodium Chloride 0.9% 250 ML 250 ML ONE ×2 (19:21→19:24)
[2020-10-09] MEDS ORDERED: Morphine 4 MG/ML VIAL ONE (19:21)
[2020-10-09] MEDS ORDERED: cefTRIAXone\\ROCEPHIN 2 GM VIAL ONE (19:21)
== END 2020-10-09 20:56 | disposition short-term general hospital (02) ==
LOC: MADERS 16:24
DX: M86.9 Osteomyelitis, unspecified (principal); L97.529 Non-pressure chronic ulcer of other part of left foot with unspecified severity; L03.116 Cellulitis of left lower limb; E11.40 Type 2 diabetes mellitus with diabetic neuropathy, unspecified; I25.10 Atherosclerotic heart disease of native coronary artery without angina pectoris; I25.2 Old myocardial infarction; I10 Essential (primary) hypertension; E78.5 Hyperlipidemia, unspecified; E78.00 Pure hypercholesterolemia, unspecified; E78.1 Pure hyperglyceridemia; Z87.891 Personal history of nicotine dependence; Z79.891 Long term (current) use of opiate analgesic; Z79.899 Other long term (current) drug therapy; Z79.84 Long term (current) use of oral hypoglycemic drugs
CPT/HCPCS: 80053; 85025; 86140; 96365; 96375; J0696; J2270; J3370; J7050

== ENCOUNTER 2020-10-16 13:38 | Inpatient (IN) | payer OTHER ==
[2020-10-16 16:13] VITALS: BMI 22.3
[2020-10-16] MEDS ORDERED: Ondansetron ODT 4 MG TAB PO PRN (16:16)
[2020-10-16] MEDS ORDERED: Senokot S 8.6-50 MG TAB PO PRN (16:34)
[2020-10-16] MEDS ORDERED: traMADol HCl 50 MG TAB PO PRN (16:34)
[2020-10-16] MEDS ORDERED: Dextrose 50% Abboject 50 ML SYRINGE SLOW IVP PRN (16:37)
[2020-10-16] MEDS: Acetaminophen 325 MG TAB PO PRN (18:23)
[2020-10-16] MEDS: HumaLOG 300 UNITS/3 ML VIAL SC PRN (18:24)
[2020-10-16] MEDS ORDERED: Polyethylene Glycol 3350 17 GM Packet PO PRN (20:14)
[2020-10-16] MEDS: Atorvastatin Calcium 40 MG TAB PO SCH (20:22)
[2020-10-16] MEDS: Brimonidine Tartrate 0.2% Ophth Soln 5 ml Bottle R EYE SCH (20:24)
[2020-10-16] MEDS: Gabapentin 100 MG CAP PO SCH (20:25)
[2020-10-16] MEDS: metroNIDAZOLE 250 MG TAB PO SCH (20:26)
[2020-10-16] MEDS: Docusate 100 MG CAP PO PRN (23:36)
[2020-10-17 05:34] LABS: #Basophils 0.1 thou/uL (0.0-0.2); #Eosinphils 0.2 thou/uL (0.0-0.7); #Lymphocytes 1.7 thou/uL (1.20-3.40); #Monocytes 2.4 thou/uL (0.11-0.59); #Neutrophils 33.3 thou/uL (1.40-6.50); %Basophils 0.3 % (0.0-1.0); %Eosinophils 0.5 % (0.0-10.0); %Lymphocytes 4.5 % (21.0-51.0); %Monocytes 6.4 % (0.0-10.0); %Neutrophils 88.4 % (42.0-75.0); Hemoglobin 11.2 g/dL (12.0-16.0); Mean Corpuscular HGB CONC 32.2 g/dL (32.0-36.0); Mean Corpuscular Hemoglobin 28.1 pg (27.0-31.0); Mean Corpuscular Volume 87.3 fL (78.0-98.0); Mean Platelet Volume 8.2 fL (7.4-10.4); Platelet Count 382 thou/uL (130-400); RBC Distribution Width 15.9 % (11.5-14.5); Red Blood Cell (RBC) Count 3.97 mill/uL (4.20-5.40); White Blood Cell (WBC) Count 37.6 thou/uL (4.8-10.8)
[2020-10-17 05:45] LABS: Anion Gap 15 mmol/L (10-20); BUN (Urea Nitrogen) 25 mg/dL (9.8-20.1); Calc. Creatinine Clearance 49 mL/min (70-130); Calcium 8.7 mg/dL (7.8-10.44); Carbon Dioxide 26 mmol/L (22-29); Chloride 94 mmol/L (98-107); Glucose 195 mg/dL (70-105); Potassium 4.9 mmol/L (3.5-5.1); Sodium 130 mmol/L (136-145)
[2020-10-17] MEDS: Acetaminophen 325 MG TAB PO PRN (09:09)
[2020-10-17] MEDS: Torsemide 20 MG TAB PO SCH (09:11)
[2020-10-17] MEDS: Gabapentin 100 MG CAP PO SCH ×3 (09:11→20:31)
[2020-10-17] MEDS: Saccharomyces boulardii 250 MG CAP PO SCH (09:12)
[2020-10-17] MEDS: metroNIDAZOLE 250 MG TAB PO SCH ×3 (09:12→20:32)
[2020-10-17] MEDS: Brimonidine Tartrate 0.2% Ophth Soln 5 ml Bottle R EYE SCH ×2 (09:12→20:31)
[2020-10-17] MEDS: Clopidogrel Bisulfate 75 MG TAB PO SCH (09:12)
[2020-10-17] MEDS: Docusate 100 MG CAP PO PRN (09:12)
[2020-10-17] MEDS: Enoxaparin Sodium 40 MG/0.4 ML SYRINGE SC SCH (09:12)
[2020-10-17] MEDS: HumaLOG 300 UNITS/3 ML VIAL SC PRN ×3 (09:15→17:36)
[2020-10-17] MEDS: Alogliptin 25 MG TAB PO SCH (09:54)
[2020-10-17] MEDS ORDERED: Alogliptin 6.25 MG TAB PO SCH (10:00)
[2020-10-17] MEDS: traMADol HCl 50 MG TAB PO PRN ×3 (11:45→23:58)
[2020-10-17 15:58] LABS: Bilirubin Negative (Negative); Blood, Urine Trace (Negative); Glucose, Urine (Dipstick) Negative (Negative); Ketone, Urine Negative (Negative); Leukocyte Negative (Negative); Nitrite Negative (Negative); Protein, Urine (Dipstick) 100 mg/dL (Neg-Trace); Urobilinogen 0.2 mg/dL (Less than 2)
[2020-10-17 16:04] LABS: Bacteria/HPF Rare-Few HPF (None Seen); Clarity Hazy (Clear); RBC/HPF 0-3 HPF (0-3); Squamous Epithelial 0-3 HPF (0-3); Urine Culture Reflex No No; WBC/HPF 0-3 HPF (0-3)
[2020-10-17] MEDS: Atorvastatin Calcium 40 MG TAB PO SCH (20:31)
[2020-10-18] MEDS: Acetaminophen 325 MG TAB PO PRN ×2 (05:00→13:49)
[2020-10-18 05:17] LABS: #Basophils 0.1 thou/uL (0.0-0.2); #Eosinphils 0.1 thou/uL (0.0-0.7); #Lymphocytes 1.8 thou/uL (1.20-3.40); #Monocytes 1.8 thou/uL (0.11-0.59); #Neutrophils 30.1 thou/uL (1.40-6.50); %Basophils 0.4 % (0.0-1.0); %Eosinophils 0.3 % (0.0-10.0); %Lymphocytes 5.4 % (21.0-51.0); %Monocytes 5.3 % (0.0-10.0); %Neutrophils 88.7 % (42.0-75.0); Hemoglobin 10.6 g/dL (12.0-16.0); Mean Corpuscular HGB CONC 30.9 g/dL (32.0-36.0); Mean Corpuscular Hemoglobin 27.1 pg (27.0-31.0); Mean Corpuscular Volume 87.9 fL (78.0-98.0); Mean Platelet Volume 7.9 fL (7.4-10.4); Platelet Count 421 thou/uL (130-400); RBC Distribution Width 16.5 % (11.5-14.5); Red Blood Cell (RBC) Count 3.92 mill/uL (4.20-5.40); White Blood Cell (WBC) Count 33.9 thou/uL (4.8-10.8)
[2020-10-18] MEDS: HumaLOG 300 UNITS/3 ML VIAL SC PRN ×3 (08:19→17:19)
[2020-10-18] MEDS: Torsemide 20 MG TAB PO SCH (08:22)
[2020-10-18] MEDS: Clopidogrel Bisulfate 75 MG TAB PO SCH (08:22)
[2020-10-18] MEDS: Gabapentin 100 MG CAP PO SCH ×3 (08:22→19:55)
[2020-10-18] MEDS: Saccharomyces boulardii 250 MG CAP PO SCH (08:22)
[2020-10-18] MEDS: metroNIDAZOLE 250 MG TAB PO SCH ×3 (08:22→20:00)
[2020-10-18] MEDS: Brimonidine Tartrate 0.2% Ophth Soln 5 ml Bottle R EYE SCH ×2 (08:23→20:02)
[2020-10-18] MEDS: Enoxaparin Sodium 40 MG/0.4 ML SYRINGE SC SCH (09:12)
[2020-10-18] MEDS: traMADol HCl 50 MG TAB PO PRN ×2 (09:38→15:42)
[2020-10-18] MEDS: Alogliptin 25 MG TAB PO SCH (09:51)
[2020-10-18 12:04] LABS: Creatinine, Urine 22.83 mg/dL (47-110)
[2020-10-18] MEDS ORDERED: Senokot S 8.6-50 MG TAB PO PRN (16:32)
[2020-10-18] MEDS: Atorvastatin Calcium 40 MG TAB PO SCH (19:59)
[2020-10-18] MEDS ORDERED: Transdermal Patch Removal TOP SCH (21:00)
[2020-10-19] MEDS: traMADol HCl 50 MG TAB PO PRN ×2 (01:25→08:53)
[2020-10-19] MEDS ORDERED: traMADol HCl 50 MG TAB PO SCH (04:45)
[2020-10-19 05:22] LABS: #Basophils 0.1 thou/uL (0.0-0.2); #Monocytes 1.3 thou/uL (0.11-0.59); #Neutrophils 36.6 thou/uL (1.40-6.50); %Basophils 0.3 % (0.0-1.0); %Eosinophils 0.1 % (0.0-10.0); %Lymphocytes 2.4 % (21.0-51.0); %Monocytes 3.4 % (0.0-10.0); %Neutrophils 93.8 % (42.0-75.0); Hemoglobin 9.7 g/dL (12.0-16.0); Mean Corpuscular HGB CONC 30.8 g/dL (32.0-36.0); Mean Corpuscular Hemoglobin 27.4 pg (27.0-31.0); Mean Corpuscular Volume 88.9 fL (78.0-98.0); Platelet Count 362 thou/uL (130-400); RBC Distribution Width 16.9 % (11.5-14.5); Red Blood Cell (RBC) Count 3.55 mill/uL (4.20-5.40)
[2020-10-19 05:39] LABS: Anion Gap 17 mmol/L (10-20); BUN (Urea Nitrogen) 25 mg/dL (9.8-20.1); Calc. Creatinine Clearance 43 mL/min (70-130); Calcium 8.2 mg/dL (7.8-10.44); Carbon Dioxide 23 mmol/L (22-29); Chloride 90 mmol/L (98-107); Glucose 258 mg/dL (70-105); Potassium 5.1 mmol/L (3.5-5.1); Sodium 125 mmol/L (136-145)
[2020-10-19] MEDS: metroNIDAZOLE 250 MG TAB PO SCH (08:40)
[2020-10-19] MEDS: Torsemide 20 MG TAB PO SCH (08:40)
[2020-10-19] MEDS: Clopidogrel Bisulfate 75 MG TAB PO SCH (08:41)
[2020-10-19] MEDS: Gabapentin 100 MG CAP PO SCH (08:41)
[2020-10-19] MEDS: Saccharomyces boulardii 250 MG CAP PO SCH (08:41)
[2020-10-19] MEDS: Enoxaparin Sodium 40 MG/0.4 ML SYRINGE SC SCH (08:42)
[2020-10-19] MEDS: Brimonidine Tartrate 0.2% Ophth Soln 5 ml Bottle R EYE SCH (08:43)
[2020-10-19 08:48] VITALS: BP 128/71; TEMP 99.4
[2020-10-19] MEDS ORDERED: Gabapentin 300 MG CAP PO SCH (09:00)
[2020-10-19] MEDS ORDERED: Alogliptin 6.25 MG TAB PO SCH (09:00)
[2020-10-19] MEDS ORDERED: Torsemide 20 MG TAB PO SCH (09:00)
[2020-10-19] MEDS ORDERED: Alogliptin 25 MG TAB PO SCH (09:00)
== END 2020-10-19 09:30 | disposition short-term general hospital (02) | DRG 638 ==
LOC: MADMS 14:23
PROVIDERS: ADMIT Family Medicine; ATTEND Family Medicine
DX: E11.69 Type 2 diabetes mellitus with other specified complication (principal); M86.162 Other acute osteomyelitis, left tibia and fibula; I50.32 Chronic diastolic (congestive) heart failure; I13.0 Hypertensive heart and chronic kidney disease with heart failure and stage 1 through stage 4 chronic kidney disease, or unspecified chronic kidney disease; I25.10 Atherosclerotic heart disease of native coronary artery without angina pectoris; N18.32 Chronic kidney disease, stage 3b; E78.5 Hyperlipidemia, unspecified; E11.22 Type 2 diabetes mellitus with diabetic chronic kidney disease; E11.51 Type 2 diabetes mellitus with diabetic peripheral angiopathy without gangrene; E11.65 Type 2 diabetes mellitus with hyperglycemia; R53.81 Other malaise; Z88.5 Allergy status to narcotic agent; Z88.8 Allergy status to other drugs, medicaments and biological substances; Z79.899 Other long term (current) drug therapy; Z95.1 Presence of aortocoronary bypass graft; Z89.412 Acquired absence of left great toe; Z87.891 Personal history of nicotine dependence; Z79.4 Long term (current) use of insulin
CPT/HCPCS: 36415; 36416; 80048; 81001; 82570; 84300; 85025; 97602; J1650; J1815; Q0162

== ENCOUNTER 2021-01-04 21:30 | Emergency (ER) | payer OTHER ==
[~2021-01-04 21:30] MED LIST: Iopamidol 370 76% 100 ML VIAL ONE; Sodium Chloride 0.9% 1,000 ML BAG ONE; Sodium Chloride 0.9% 100 ML BAG ONE
[2021-01-04] MEDS ORDERED: Haloperidol Lactate 5 MG/ML VIAL ONE (21:32)
[2021-01-04] MEDS ORDERED: Ketamine 50 MG/ML (10ML VIAL) ONE (22:05)
[2021-01-04 22:29] LABS: #Basophils 0.1 thou/uL (0.0-0.2); #Lymphocytes 1.2 thou/uL (1.20-3.40); #Monocytes 0.5 thou/uL (0.11-0.59); #Neutrophils 10.5 thou/uL (1.40-6.50); %Basophils 0.6 % (0.0-1.0); %Eosinophils 0.1 % (0.0-10.0); %Lymphocytes 9.8 % (21.0-51.0); %Neutrophils 85.5 % (42.0-75.0); Hemoglobin 16.9 g/dL (12.0-16.0); Mean Corpuscular HGB CONC 30.3 g/dL (32.0-36.0); Mean Corpuscular Hemoglobin 28.1 pg (27.0-31.0); Mean Corpuscular Volume 92.8 fL (78.0-98.0); Mean Platelet Volume 8.5 fL (7.4-10.4); Platelet Count 243 thou/uL (130-400); RBC Distribution Width 14.2 % (11.5-14.5); Red Blood Cell (RBC) Count 6.03 mill/uL (4.20-5.40); White Blood Cell (WBC) Count 12.3 thou/uL (4.8-10.8)
[2021-01-04 22:39] LABS: Base Excess-Venous 0.9 mmol/L (-2.0 to 3.0); CO2 Tension (PvCO2) 51.1 mmHg (42.0-51.0); Calcium, Ionized 1.06 mmol/L (1.15-1.33); Chloride 96 mmol/L (98-107); Hemoglobin - Calc 19.6 g/dL (12.0-16.0); Potassium 4.8 mmol/L (3.5-5.1); Sodium 134 mmol/L (138-145); T. Carbon Dioxide 29.6 mmol/L (22.0-28.0); vO2 Saturation-calc 51.7 % (60.0-85.0)
[2021-01-04] MEDS ORDERED: Sodium Chloride 0.9% 1,000 ML ONE (22:46)
[2021-01-04 23:18] LABS: Bilirubin Negative (Negative); Blood, Urine Moderate (Negative); Clarity Clear (Clear); Glucose, Urine (Dipstick) 500 mg/dL (Negative); Ketone, Urine 15 mg/dL (Negative); Leukocyte Negative (Negative); Nitrite Negative (Negative); Protein, Urine (Dipstick) > or equal to 300 mg/dL (Neg-Trace); Urobilinogen 0.2 mg/dL (Less than 2)
[2021-01-04 23:24] LABS: Squamous Epithelial 0-3 HPF (0-3); WBC/HPF 0-3 HPF (0-3)
[2021-01-04 23:29] LABS: ALT (SGPT) 32 U/L (8-55); AST (SGOT) 22 U/L (5-34); Albumin 3.5 g/dL (3.5-5.0); Alkaline Phosphatase 109 U/L (40-110); Anion Gap 21 mmol/L (10-20); BUN (Urea Nitrogen) 28 mg/dL (9.8-20.1); Bilirubin, Total 0.4 mg/dL (0.2-1.2); CK (CPK) 131 U/L (29-168); Calc. Creatinine Clearance 0 mL/min (70-130); Calcium 9.4 mg/dL (7.8-10.44); Carbon Dioxide 22 mmol/L (22-29); Chloride 100 mmol/L (98-107); Globulin 3.4 g/dL (2.4-3.5); Glucose 492 mg/dL (70-105); Magnesium 1.5 mg/dL (1.6-2.6); Potassium 3.9 mmol/L (3.5-5.1); Protein, Total 6.9 g/dL (6.0-8.3); Sodium 139 mmol/L (136-145)
[2021-01-04 23:53] LABS: CKMB 2.1 ng/mL (0-6.6)
[2021-01-05] MEDS ORDERED: Sodium Chloride 0.9% 100 ML ONE (00:16)
[2021-01-05] MEDS ORDERED: Sodium Chloride 0.9% 1,000 ML ONE (00:16)
[2021-01-05] MEDS ORDERED: Sodium Chloride 0.9% 250 ML 250 ML ONE (00:16)
[2021-01-05] MEDS ORDERED: Cefepime 1 GM VIAL ONE (00:16)
[2021-01-05] MEDS ORDERED: Acetaminophen 650 MG Suppository ONE (01:01)
[2021-01-05 02:26] LABS: Lactic Acid 2.4 mmol/L (0.5-2.2)
[2021-01-05 04:29] LABS: CSF, Glucose 190 mg/dl (40-70); CSF, Protein 53 mg/dL (15-40)
[2021-01-05 04:32] LABS: Color Of CSF Supernatant COLORLESS (Colorless); Tube # 2; Unspun CSF Color COLORLESS (Colorless)
[2021-01-05 04:59] LABS: CSF Source CSF; Clarity Clear (Clear); Tube # 1
[2021-01-05 05:00] LABS: CSF Source CSF; Clarity Clear (Clear); Tube # 4
[2021-01-05 06:51] LABS: SARS-CoV-2 NAA Rapid Test Not Detected (NotDetected)
[2021-01-05] MEDS ORDERED: Haloperidol Lactate 5 MG/ML VIAL ONE (07:17)
[2021-01-05 09:14] LABS: Troponin I 3.331 ng/mL (< 0.028)
[2021-01-05] MEDS ORDERED: Enoxaparin Sodium 40 MG/0.4 ML SYRINGE ONE (09:26)
[2021-01-05] MEDS ORDERED: Insulin Regular 300 UNITS/3 ML VIAL ONE (10:12)
[2021-01-05] MEDS ORDERED: Aspirin 300 MG Suppository ONE (10:58)
== END 2021-01-05 11:57 | disposition short-term general hospital (02) ==
LOC: MADERS 21:30
DX: R50.9 Fever, unspecified (principal); E87.2 Acidosis; R41.82 Altered mental status, unspecified; Z20.822 Contact with and (suspected) exposure to COVID-19; I25.2 Old myocardial infarction; I48.91 Unspecified atrial fibrillation; E78.5 Hyperlipidemia, unspecified; E78.00 Pure hypercholesterolemia, unspecified; E11.40 Type 2 diabetes mellitus with diabetic neuropathy, unspecified; I25.10 Atherosclerotic heart disease of native coronary artery without angina pectoris; Z79.899 Other long term (current) drug therapy; Z79.891 Long term (current) use of opiate analgesic
CPT/HCPCS: 36416; 51702; 62270; 70450; 71045; 74177; 80053; 81003; 81015; 82330; 82550; 82553; 82803; 82945; 83605; 83735; 83880; 84157; 84484; 85014; 85025; 87040; 87070; 87086; 87205; 89051; 93005; 96365; 96367; 96372; 96375; 96376; J0133; J0692; J1630; J1650; J1815; J3370; J3490; J7050; Q9967; U0002

== ENCOUNTER 2021-03-14 00:52 | Emergency (ER) | payer OTHER ==
[2021-03-14] MEDS ORDERED: Sodium Chloride 0.9% 1,000 ML ONE (01:37)
[2021-03-14] MEDS ORDERED: Ondansetron PF 4 MG/2 ML Vial ONE (01:37)
[2021-03-14] MEDS ORDERED: Lorazepam 2 MG/ML VIAL ONE (01:37)
[2021-03-14 01:49] LABS: BHCG - Serum Negative (NEGATIVE); Band 4 % (5-11); Base Excess-Venous 0.2 mmol/L (-2.0 to 3.0); Bicarbonate (HCO3v) 23.1 mmol/L (22.0-28.0); CO2 Tension (PvCO2) 32.7 mmHg (42.0-51.0); Calcium, Ionized 1.06 mmol/L (1.15-1.33); Chloride 101 mmol/L (98-107); Hemoglobin - Calc 18.6 g/dL (12.0-16.0); Lymphocytes 12 % (21-51); MDiff Complete? YES; Mean Corpuscular HGB CONC 33.2 g/dL (32.0-36.0); Mean Corpuscular Hemoglobin 30.4 pg (27.0-31.0); Mean Corpuscular Volume 91.7 fL (78.0-98.0); Mean Platelet Volume 7.4 fL (7.4-10.4); Monocytes 8 % (0-10); Neutrophil 76 % (42-75); Platelet Count 304 thou/uL (130-400); Pregs Control Background? CLEAR/WHITE (CLR/WHITE); Pregs Control Bar Appear? YES (CONTROL BAR); RBC Distribution Width 12.8 % (11.5-14.5); Red Blood Cell (RBC) Count 5.58 mill/uL (4.20-5.40); Sodium 138 mmol/L (138-145); T. Carbon Dioxide 24.1 mmol/L (22.0-28.0); White Blood Cell (WBC) Count 16.1 thou/uL (4.8-10.8); vO2 Saturation-calc 88.1 % (60.0-85.0)
[2021-03-14 01:54] LABS: Bilirubin Negative (Negative); Blood, Urine Moderate (Negative); Glucose, Urine (Dipstick) >=1000 mg/dL (Negative); Ketone, Urine 15 mg/dL (Negative); Leukocyte Negative (Negative); Nitrite Negative (Negative); Protein, Urine (Dipstick) > or equal to 300 mg/dL (Neg-Trace); Urobilinogen 0.2 mg/dL (Less than 2); pH, Urine 5.5 (5.0-9.0)
[2021-03-14 01:56] LABS: ALT (SGPT) 26 U/L (8-55); AST (SGOT) 26 U/L (5-34); Albumin 4.3 g/dL (3.5-5.0); Alkaline Phosphatase 104 U/L (40-110); Anion Gap 27 mmol/L (10-20); BUN (Urea Nitrogen) 30 mg/dL (9.8-20.1); CK (CPK) 207 U/L (29-168); Calc. Creatinine Clearance 0 mL/min (70-130); Calcium 10.2 mg/dL (7.8-10.44); Carbon Dioxide 18 mmol/L (22-29); Chloride 97 mmol/L (98-107); Globulin 4.2 g/dL (2.4-3.5); Glucose 396 mg/dL (70-105); Lipase 114 U/L (8-78); Potassium 3.9 mmol/L (3.5-5.1); Protein, Total 8.5 g/dL (6.0-8.3); Sodium 138 mmol/L (136-145)
[2021-03-14 01:57] LABS: Acetaminophen Less than 6.0 mcg/mL (10.0-30.0); Alcohol Less than 10 mg/dL (Less than 10); Salicylate Less than 8.0 mg/dL (15.0-30.0)
[2021-03-14 02:06] LABS: Amphetamine Not Detected (NotDetected); Barbiturates Screen Not Detected (NotDetected); Benzodiazepine Screen Not Detected (NotDetected); Cocaine Metabolite Screen Not Detected (NotDetected); Medtox Control Line Valid? VALID (VALID); Methadone Not Detected (NotDetected); Methamphetamine Not Detected (NotDetected); Opiate Screen Not Detected (NotDetected); Oxycodone Screen Not Detected (NotDetected); Phencyclidine (PCP) Not Detected (NotDetected); THC/Cannabinoid Screen Detected (NotDetected); Tricyclic Screen Not Detected (NotDetected)
[2021-03-14 02:08] LABS: Bacteria/HPF 1+ HPF (None Seen); Clarity Slightly Cloudy (Clear)
[2021-03-14 02:09] LABS: Yeast-Budding Rare HPF (None Seen)
[2021-03-14] MEDS ORDERED: Nitroglycerin 2% Ointment 1 INCH/1 GM Packet ONE (02:14)
[2021-03-14] MEDS ORDERED: Sodium Chloride 0.9% 250 ML 250 ML ONE (02:14)
[2021-03-14 02:23] LABS: CKMB 7.3 ng/mL (0-6.6)
[2021-03-14] MEDS ORDERED: Enoxaparin Sodium 40 MG/0.4 ML SYRINGE ONE (03:01)
[2021-03-14] MEDS ORDERED: Aspirin Chewable 81 MG TAB ONE (03:01)
[2021-03-14 03:07] LABS: INR-International Normal Ratio 0.9; Prothrombin Time 12.4 sec (12.0-14.7)
[2021-03-14 03:08] LABS: PTT 27.4 sec (22.9-36.1)
[2021-03-14 03:28] LABS: SARS-CoV-2 NAA Rapid Test Not Detected (NotDetected)
== END 2021-03-14 03:22 | disposition short-term general hospital (02) ==
LOC: MADERS 00:52
DX: R41.82 Altered mental status, unspecified (principal); I21.4 Non-ST elevation (NSTEMI) myocardial infarction; E11.65 Type 2 diabetes mellitus with hyperglycemia; F12.10 Cannabis abuse, uncomplicated; R74.02 Elevation of levels of lactic acid dehydrogenase [LDH]; I49.3 Ventricular premature depolarization; E11.40 Type 2 diabetes mellitus with diabetic neuropathy, unspecified; I10 Essential (primary) hypertension; E78.5 Hyperlipidemia, unspecified; I48.91 Unspecified atrial fibrillation; E78.00 Pure hypercholesterolemia, unspecified; I25.2 Old myocardial infarction; I25.10 Atherosclerotic heart disease of native coronary artery without angina pectoris; Z20.822 Contact with and (suspected) exposure to COVID-19; Z87.891 Personal history of nicotine dependence; Z79.4 Long term (current) use of insulin; Z87.19 Personal history of other diseases of the digestive system; Z79.899 Other long term (current) drug therapy
CPT/HCPCS: 51701; 70450; 71045; 80053; 80306; 80307; 81003; 81015; 82010; 82140; 82330; 82550; 82553; 82803; 83605; 83690; 84443; 84484; 84703; 85025; 85610; 85730; 93005; 96372; 96374; 96375; J1650; J2060; J2405; J7050; U0002

== ENCOUNTER 2021-04-15 17:40 | Emergency (ER) | payer OTHER ==
[2021-04-15 18:12] LABS: #Basophils 0.1 thou/uL (0.0-0.2); #Lymphocytes 1.4 thou/uL (1.20-3.40); #Monocytes 0.5 thou/uL (0.11-0.59); #Neutrophils 10.8 thou/uL (1.40-6.50); %Basophils 0.8 % (0.0-1.0); %Eosinophils 0.1 % (0.0-10.0); %Lymphocytes 10.8 % (21.0-51.0); %Monocytes 3.9 % (0.0-10.0); %Neutrophils 84.5 % (42.0-75.0); Hemoglobin 17.1 g/dL (12.0-16.0); Mean Corpuscular HGB CONC 32.7 g/dL (32.0-36.0); Mean Corpuscular Hemoglobin 30.3 pg (27.0-31.0); Mean Corpuscular Volume 92.8 fL (78.0-98.0); Mean Platelet Volume 7.3 fL (7.4-10.4); Platelet Count 260 thou/uL (130-400); RBC Distribution Width 11.3 % (11.5-14.5); Red Blood Cell (RBC) Count 5.64 mill/uL (4.20-5.40); White Blood Cell (WBC) Count 12.8 thou/uL (4.8-10.8)
[2021-04-15] MEDS ORDERED: Ondansetron PF 4 MG/2 ML Vial ONE (18:22)
[2021-04-15 18:26] LABS: ALT (SGPT) 31 U/L (8-55); AST (SGOT) 28 U/L (5-34); Albumin 3.9 g/dL (3.5-5.0); Alkaline Phosphatase 90 U/L (40-110); Anion Gap 22 mmol/L (10-20); BUN (Urea Nitrogen) 14 mg/dL (9.8-20.1); Bilirubin, Total 0.6 mg/dL (0.2-1.2); Calc. Creatinine Clearance 0 mL/min (70-130); Calcium 10.2 mg/dL (7.8-10.44); Carbon Dioxide 22 mmol/L (22-29); Chloride 99 mmol/L (98-107); Globulin 3.7 g/dL (2.4-3.5); Glucose 425 mg/dL (70-105); Potassium 3.8 mmol/L (3.5-5.1); Protein, Total 7.6 g/dL (6.0-8.3); Sodium 139 mmol/L (136-145)
[2021-04-15] MEDS ORDERED: Insulin Regular 300 UNITS/3 ML VIAL ONE (18:45)
[2021-04-15 19:34] LABS: Critical Call CKMB 0
[2021-04-15 20:08] LABS: Bilirubin Negative (Negative); Blood, Urine Moderate (Negative); Clarity Clear (Clear); Glucose, Urine (Dipstick) >=1000 mg/dL (Negative); Ketone, Urine 40 mg/dL (Negative); Leukocyte Negative (Negative); Nitrite Negative (Negative); Protein, Urine (Dipstick) > or equal to 300 mg/dL (Neg-Trace); Urobilinogen 0.2 mg/dL (Less than 2); pH, Urine 6.5 (5.0-9.0)
[2021-04-15] MEDS ORDERED: Aspirin Chewable 81 MG TAB ONE (20:10)
[2021-04-15 20:20] LABS: Bacteria/HPF Rare-Few HPF (None Seen); Epithelial Cast 0-3 LPF (None Seen); Mucous/LPF Rare LPF (<2+); Squamous Epithelial 0-3 HPF (0-3); Transitional Epithelial 0-3 HPF (None Seen)
[2021-04-15] MEDS ORDERED: cefTRIAXone\\ROCEPHIN 2 GM VIAL ONE (20:32)
== END 2021-04-15 21:08 | disposition short-term general hospital (02) ==
LOC: MADERS 17:40
DX: E11.10 Type 2 diabetes mellitus with ketoacidosis without coma (principal); I21.9 Acute myocardial infarction, unspecified; I10 Essential (primary) hypertension; I48.91 Unspecified atrial fibrillation; E78.5 Hyperlipidemia, unspecified; E78.00 Pure hypercholesterolemia, unspecified; E11.40 Type 2 diabetes mellitus with diabetic neuropathy, unspecified; I25.10 Atherosclerotic heart disease of native coronary artery without angina pectoris; Z87.891 Personal history of nicotine dependence; Z79.899 Other long term (current) drug therapy
CPT/HCPCS: 36416; 71045; 80053; 81003; 81015; 82010; 82553; 84484; 85025; 87040; 93005; 94760; 96365; 96375; J0696; J1815; J2405